=== PATIENT | female | born 1950 | race Caucasian/White ===

== ENCOUNTER → 2016-09-19 | Outpatient (CLI) | payer MEDICARE, BC | LOC: WI 14:13 | PROVIDERS: ATTEND Family Medicine | DX: Z12.31 Encounter for screening mammogram for malignant neoplasm of breast (principal) | CPT/HCPCS: 77063; G0202; 77067 ==

== ENCOUNTER → 2016-11-04 | Outpatient (CLI) | payer MEDICARE, BC | LOC: WI 13:22 | PROVIDERS: ATTEND Orthopaedic Surgery | DX: M85.88 Other specified disorders of bone density and structure, other site (principal) | CPT/HCPCS: 77080 ==

== ENCOUNTER → 2019-10-25 | Outpatient (CLI) | payer MEDICARE, BC ==
[~2019-10-25] MED LIST: REGADENOSON INJ 0.4 MG/5 ML DISP.SYRIN IV ONE
--- NOTE | 2019-10-25 13:06 | DRAGON STRESS TEST REPORT ---
Pharmacological nuclear stress test Date: October 25, 2019 Referring physician: Alok Matthew MD Performing physician: Gerald Church MD Indication: Chest pain Clinical history 69-year-old lady with medical history significant for dyslipidemia and systemic hypertension. She presented with complaints of chest tightness. We decided to proceed with pharmacological nuclear stress test Procedure The patient presented to the stress lab. Initially rest images were obtained according to standard protocol after the injection of 14.69 millicurie technetium 99m sestamibi. Subsequently the patient underwent pharmacological stress utilizing 0.4 mg of regadenoson intravenously. The patient's EKG and vital signs were monitored throughout the procedure. Subsequently patient was injected with 44.56 millicuries of technetium 99m sestamibi. After a period of rest, stress images were obtained according to standard protocol. The patient's resting EKG showed sinus rhythm at 68 beats per minute. The patient's stress EKG did not show any evidence for myocardial ischemia. There were no arrhythmias observed. Raw as well as processed rest and stress images were reviewed. There was moderate gut uptake which did not interfere with the study. The rest and stress images show uniform uptake of radioactive isotope without any fixed or reversible defects to suggest myocardial ischemia or myocardial infarction. There is normal contractility post-rest. The calculated ejection fraction is 65 %. The TID ratio is 1.44 Conclusion The stress EKG is negative for myocardial ischemia by pharmacological stress. There is no scintigraphic evidence of myocardial ischemia or myocardial infarction There is normal contractility post-rest The gated left ventricular ejection fraction is estimated at 65%. The TID ratio is abnormally high at 1.44. Thus although the myocardial perfusion study is normal this finding raises the possibility of underlying coronary artery disease. The patient will be given an appointment to discuss these results. [facility]
--- NOTE | 2019-10-25 13:34 | XCELERA REPORT ---
[address] [address] Transthoracic Echocardiogram Report Name: MARTIN BARBA Age: 69 yrs Gender: Female : 1950 Patient Status: Outpatient Patient Location: [facility] Study Date: 10/25/2019 09:39 AM History: Dyspnea Height: 64 in Weight: 230 lb BSA: 2.1 m2 Procedure: A complete two-dimensional transthoracic echocardiogram was performed (2D, M-mode, spectral and color flow Doppler). The study was technically difficult with many images being suboptimal in quality. Reason For Study: SOB Previous Evaluation: No previous studies were available. History: Shortness of breath. HTN. Ordering Physician: VETO BESS Performed By: Liz Del Rio Interpretation Summary Left ventricular systolic function is normal. The Ejection Fraction estimate is 55-60% The right ventricle is normal in size and function. There is a trace amount of mitral regurgitation There is no aortic valve stenosis There is a trace amount of tricuspid regurgitation There is no pericardial effusion. MMode/2D Measurements & Calculations RVDd: 3.8 cm LVIDd: 4.1 cm FS: 34.7 % Ao root diam: 3.0 cm IVSd: 1.1 cm LVIDs: 2.7 cm EDV(Teich): 72.6 ml Ao root area: 6.9 cm2 LVPWd: 1.1 cm ESV(Teich): 25.9 ml LA dimension: 3.6 cm EF(Teich): 64.3 % Doppler Measurements & Calculations MV E max jair: MV P1/2t max jair: Ao V2 max: LV V1 max P.4 cm/sec 84.9 cm/sec 132.8 cm/sec 5.9 mmHg MV A max jair: MV P1/2t: 84.5 msec Ao max PG: LV V1 max: 105.6 cm/sec MVA(P1/2t): 2.6 cm2 7.1 mmHg 121.9 cm/sec MV E/A: 0.80 MV dec slope: 294.2 cm/sec2 MV dec time: 0.29 sec PA V2 max: PI end-d jair: TR max jair: MV P1/2t-pr_phl: 82.9 cm/sec 86.9 cm/sec 262.0 cm/sec 84.5 msec PA max P.8 mmHg TR max P.5 mmHg Left Ventricle The left ventricle is grossly normal size. There is mild to moderate concentric left ventricular hypertrophy. Left ventricular systolic function is normal. The Ejection Fraction estimate is 55-60%. Doppler measurements suggest impaired left ventricular relaxation, which is associated with grade I/IV or mild diastolic dysfunction. Regional wall motion abnormalities cannot be excluded due to limited visualization. Right Ventricle The right ventricle is normal in size and function. Atria The right atrium is normal. The left atrial size is normal. There is no Doppler evidence for an interatrial shunt. The interatrial septum is intact with no evidence for an atrial septal defect. Mitral Valve The mitral valve is grossly normal. There is no mitral valve stenosis. There is a trace amount of mitral regurgitation. Aortic Valve The aortic valve is trileaflet. The aortic valve opens well. The aortic valve is normal in structure and function. There is no aortic valve stenosis. No aortic regurgitation is present. Tricuspid Valve The tricuspid valve is normal in structure and function. There is a trace amount of tricuspid regurgitation. Doppler findings do not suggest pulmonary hypertension. Pulmonic Valve The pulmonic valve is not well visualized. There is a mild amount of pulmonic regurgitation. Great Vessels The aortic root is normal size. The inferior vena cava appeared normal and decreased > 50% with respiration (RAP 5-10 mmHg). Effusions There is no pericardial effusion. : VETO BESS Anil
== END ==
LOC: RAD 06:36
PROVIDERS: ATTEND Internal Medicine
DX: R07.9 Chest pain, unspecified (principal); I51.7 Cardiomegaly; R06.02 Shortness of breath; I10 Essential (primary) hypertension
CPT/HCPCS: 93306; 93017; 78452; A9500; J2785; Q9969